=== PATIENT | male | born 1975 | race Caucasian/White ===

== ENCOUNTER 2020-03-24 15:24 | Outpatient (REF) | payer OTHER, SELFPAY ==
[2020-03-29 15:02] LABS: Testosterone, Free 72.4 pg/mL (35.0-155.0); Testosterone, Total 389 ng/dL (250-1100)
== END 2020-03-24 15:25 | disposition home or self-care (01) ==
LOC: HO.MANLDS 15:24
PROVIDERS: PCP Internal Medicine; Visit Provider Internal Medicine
DX: N52.9 Male erectile dysfunction, unspecified (principal)
CPT/HCPCS: 84402; 84403

== ENCOUNTER 2024-06-26 15:10 | Outpatient (REF) | payer BC, SELFPAY ==
--- OUTSIDE RECORDS SUMMARY | 2024-06-26 17:56 | XMS_ITS | Data Portability ---
Author Organization [facility] Home Service Address [address] [place] [address] Assessment Encounter Date Assessment Date Assessment LastModified by Organization Details LastModified Time 06/16/2021 06/16/2021 . Not available 05/2021 15:53:09 Plan of Treatment Reminders Order Date Submit Date Provider Last Modified By Organization Details Last Modified Time Details Appointments NEW PROBLEM 15 2024 02:30P M TARA BARROSO Not available Not available Not available Lab culture, body fluid - left bursitis, fluid 2024 025 [facility], [address] [place] [address], [id number], 06/26/2024 15:04:27 CMP, serum or plasma 2021 022 [facility], [address] [place] [address], [id number], 06/16/2021 16:05:12 CBC w/ auto diff 2021 022 [facility], [address] [place] [address], [id number], 06/16/2021 16:05:12 lipid panel, blood 2021 022 [facility], [address] [place] [address], [id number], 06/16/2021 16:05:12 PSA, serum or plasma 2021 022 [facility], [address] [place] [address], [id number], 06/16/2021 16:05:12 vitamin D, 25-hydrox y, total, serum 2021 022 [facility], [address] [place] [address], [id number], 06/16/2021 16:05:12 testoster one, free + total, w/ shbg, serum 2019 020 [facility], [address] [place] [address], [id number], 03/30/2020 11:15:20 Referral orthopedi c referral 2019 020 [email or web address] 10 Trudi Stallworth MD, [address] [place], [address], 06/19/2019 11:24:12 Procedures None recorded. Surgeries None recorded. Imaging XR, shoulder 2019 ELADIO Not available 06/19/2019 17:16:58 Medication Orders cephalexi n 500 mg capsule 2024 025 [facility]/Pharmacy #2024, [address] [place], [address], 06/26/2024 14:55:59 prednison e 10 mg tablet 2024 025 [facility]/Pharmacy #2024, [address] [place], [address], 06/26/2024 14:55:59 sildenafi l 50 mg tablet 2019 020 [facility]/Pharmacy #2024, [address] [place], [address], 03/23/2020 16:55:38 Patient TargetsNo targets recorded. Patient InstructionsNo instructions recorded. Reason for Referral Orthopedic Referral for Pain of right shoulder joint Referring Physician: Jody Carlos, Internal Medicine, Encounter Date: 06/17/2019 Results Created Date Observation Date Name Description Value Unit Range Abnormal Flag Note LastModifiedBy Organization Detail LastModifiedTime 06/19/19 20 06/19/2019 XR, shoul holland No observ ation record ed. [email or web address] [address], [address], 06/21/2019 12:14:27 06/22/19 22 06/21/2021 XR, shoul holland, 2 or more view No observ ation record ed. [facility] [address] [place] [address], [id number], 06/22/2021 12:19:16 07/09/19 22 07/07/2021 MRI, shoul holland, w/o contr ast No observ ation record ed. [email or web address] [facility] [address] [place] [address], [id number], 07/09/2021 11:26:06 Result Notes None recorded. 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 0 16:52:26 Bursitis of olecranon of left elbow 806876077659 101 Active 2024 TARA BARROSO [address] [place] [address], [phone], [facility] 5 14:54:06 Problem Notes None recorded. Procedures Surgical History Date Name Laterality Status Provider Name and Address Organization Details Recorded Time 025 Arthrocentesis Major Joint/Bursa completed TARA BARROSO [address] [place] [address], [phone], [facility] 06/26/2024 14:56:44 Imaging Results Imaging Date Name Status LastModified by Organiz ation Details LastModified Time 06/19/2019 [facility] [address], [address], 06/21/2019 12:14:27 06/21/2021 XR, shoulder, 2 or more view completed [facility] [address] [place] [address], [address], 06/22/2021 12:19:16 07/07/2021 MRI, shoulder, w/o contrast completed jvanasse [facility] [address] [place] [address], [id number], 07/09/2021 11:26:06 Procedure Notes None recorded. Medical Equipment None Reported. Allergies No known drug allergies Medications Name Sig Start Date Stop Date Status Note LastModified by Organization Details LastModified Time prednisone 10 mg tablet 40 mg x 2 days30 mg x 2 days 20 mg x 2 days10 mg x 2 days 2024 active Not Available Not Available Not Avai lable sildenafil 50 mg tablet TAKE 1 TABLET BY MOUTH NEEDED FOR 30 DAYS. active Not Available Not Available No t Available cephalexin 500 mg capsule Take 1 capsule every 6 hours by oral route for 7 days. 2024 active Not Available Not Available Not Avai lable sildenafil (pulmonary hypertension ) 20 mg tablet Take 3 tablets by mouth one hour prior to sex as needed. 06/16 completed Not Available Not Available Not Available Vitals Date Recorded Body height Body mass index (BMI) Body weight Heart rate Oxygen saturation Oxygen saturation in Arterial blood by Pulse oximetry Provider Name and Address Organization Details Last Updated DateTime 0 177.17 cm 32.8 kg/m2 613426. 19 g 104 /min 97 % 97 % Kallie Zepeda [facility] 0 14:21:45 Date Recorded Systolic blood pressure Diastolic blood pressure Provider Name and Address Organization Details Last Updated DateTime 06/17/2019 130 mm[Hg] 90 mm[Hg] July MARILIN Carlos [address] [place], [address], [facility] 06/17/2019 14:39:47 Date Recorded Body height Heart rate Oxygen saturation Oxygen saturation in Arterial blood by Pulse oximetry Systolic blood pressure Diastolic blood pressure Provider Name and Address Organization Details Last Updated DateTime 0 177.17 cm 98 /min 98 % 98 % 144 mm[Hg] 90 mm[Hg] Nick Jimenez DO [address] [place], [address], [facility] 0 16:18:26 Date Recorded Body height Body mass index (BMI) Body weight Heart rate Oxygen saturation Oxygen saturation in Arterial blood by Pulse oximetry Systolic blood pressure Diastolic blood pressure Provider Name and Address Organization Details Last Updated DateTime 2 177.17 cm 34 kg/m2 060309. 57 g 85 /min 98 % 98 % 128 mm[Hg] 78 mm[Hg] Nick Jimenez DO [address] [place], [address], [facility] 2 15:22:10 Social History Question Answer Notes LastModified by Organizat ion Details LastModified Time Tobacco Smoking Status Never Smoker Not Available [facility] 02/18[facility]2020 03:36:24 What Was The Date Of Your Most Recent Tobacco Screening? 06/16/2021 Information not available 06/16/2021 Do You Use Any Illicit Or Recreational Drugs? No Information not available 06/16/2021 Do You Or Have You Ever Used Any Other Forms Of Tobacco Or Nicotine? No Information not available 06/16/2021 Sex: Unknown Functional Status None recorded. Mental Status None recorded. Family History Nothing Reported. Medical History No medical history recorded. Immunizations Vaccine Type Date Status Note Provider Nam e and Address Organization Details Recorded Time COVID-19, mRNA, LNP-S, PF, 100 mcg/0.5mL dose or 50 mcg/0.25mL dose 03/08/2021 completed Mally Valencia [address] [place] [address], [phone], [facility] 06/16/2021 15:21:22 COVID-19, mRNA, LNP-S, PF, 100 mcg/0.5mL dose or 50 mcg/0.25mL dose 07/04/2020 completed Nyla dumont [facility] Internal [facility] 09/25/2020 11:31:56 COVID-19, mRNA, LNP-S, PF, 100 mcg/0.5mL dose or 50 mcg/0.25mL dose 08/10/2020 completed Nyla dumont [facility] Internal [facility] 09/25/2020 11:32:01 Past Encounters Encounter ID Performer Location Encounter Start Date Encounter Closed Date Diagnosis/Indication Diagnosis SNOMED-CT Code Diagnosis ICD10 Code Diagnosis Note [id number] July MARILIN Carlos [facility] [address] [facility] [address] [address] 06/17/2019 14:08:41 06/17/2019 14:48:33 Pain of right shoulder joint 4438051175 5421276 M25.511 declines pain meds recommend aleve 220 mg bid prn Labile hyp ertension due to being in a clinical environment 903384423 I15.8 BP elevated in office has been monitored at home in the past will recommend continue to monitor BP at home periodical ly as his in office BP will not be reliable [id number] Nick Jimenez [facility] [address] [facility] [address] [address] 03/23/2020 15:54:44 03/23/2020 16:56:18 Primary erectile dysfunction 043484727 N52.9 [id number] Nick Jimenez [facility] [address] [facility] [address] [address] 06/16/2021 15:14:51 06/16/2021 16:12:37 Active or passive immunization 837148989 Z23 hid Adult heal th examination 923169465 Z00.01 [id number] LORY RIDDLE [facility] [address] [facility] [address] [address] 06/26/2024 14:19:27 06/26/2024 15:48:18 Bursitis of olecranon of left elbow 1930544045 10982 M70.22 start on pred and keflexwill see if fluid can be sent out for culture Health Concerns Section Related Observation LastModified by Organization Detai ls LastModified Time None Recorded Concern Status LastModified by Organization Details LastModified Time None Recorded Advance Directives Directive None Recorded Payers Encounter Date Sequence Insurance Name Policy Number Policy Rodrigues Covered Member ID Rodrigues Member ID Guarantor Name 06/17/2019 1 [facility] Jun Delcidjaden [id number] Jun Nkechi 03/23/2020 1 [facility] Jun Nkechi [id number] Jun Delcidjaden 06/16/2021 1 [facility] [id number] Courtney Delcidjaden [id number] 18 Jun Delcidjaden 06/26/2024 1 [facility] [id number] Courtney Arboleda [id number] 18 Jun Nkechi Notes Date Note Type Note Provider Name a nd Address Organization Details Recorded Time 0 text/html c/o right shoulder pain and something is popping out x a couple weeks, but it occurred before that intermittently but not particularly bothersome no arm weakness feels discomfort or that something might pop out when his arm is stretched out it 30 years ago, but it hasn't been bothersome since until this started. at that time he was playing football and fell back and his arm hyperextended. not sure if he even went to the doctor at that time. 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 06/17/2019 14:45:14 0 text/html here for a prob with ed relates has been present off on for a couple years last 6 mo became worse Nick Jimenez DO [address] [facility], [place], [address], [facility] 03/23/2020 16:56:17 2 text/html Annual WellnessReported bypatient.Diet and Nutrition:healthy diet Fracture Risk:no history of fractures; no recent explained fracture; no sudden unexplained fractures; no previous musculoskeletal injuries Physical Activity:exercises on a regular basis; recent increase in physical activity; good physical condition Additional Lifestyle Factors:no tobacco use; no alcohol intake; stopped drinking alcohol Depression Risk:never feels sad, empty, or tearful; no loss of interest in activities; no significant changes in weight; no sleep disturbances or insomnia; no agitation; no loss of energy; no feelings of worthlessness or guilt; no thoughts of suicide; no history of depression; no history of mood disorders Hearing:no loss of hearing Vision:no vision problems doing well no major issuesnote he had two hip replacements at 41 yrs of age Nick Jimenez DO [address] [place], [address], [facility] 06/16/2021 15:59:18 5 text/html c/o bursitis, left elbow unknown cause, no trauma no injury no signs suggestive of gout, minimal pain, no redness outside of the bursa, no warmth with palpation patient was prepped for aspiration proceduregiven 1cc of lidocaine 1% w/o epi and 9 mL of fluid was drained from the bursa with 22 g syringe fluid was all removed, area is now back to normal anatomypt tolerated procedure well given course of pred and abxwill see if fluid can be sent out for culture TARA BARROSO [address] [place], [address], [facility] 06/26/2024 15:00:54
--- OUTSIDE RECORDS SUMMARY | 2024-06-26 17:56 | XMS_ITS | Continuity of Care Document ---
Author Organization [facility], [facility] Address [address] [facility] [place] [address] [place] [address] Assessment No assessment recorded. Plan of Treatment Reminders Order Date Submit Date Provider Last Modified By Organization Details Last Modified Time Details Appointments NEW PROBLEM 15 2024 02:30P M TARA BARROSO Not available Not available Not available Lab culture, body fluid - left bursitis, fluid 2024 025 [facility], [address] [place] [address], [address], 06/26/2024 15:04:27 Referral None recorded. Procedures None recorded. Surgeries None recorded. Imaging None recorded. Medication Orders cephalexi n 500 mg capsule 2024 025 [facility]/Pharmacy #2024, [address] [place], [address], 06/26/2024 14:55:59 prednison e 10 mg tablet 2024 025 [facility]/Pharmacy #2024, [address] [place], [address], 06/26/2024 14:55:59 Patient TargetsNo targets recorded. Patient InstructionsNo instructions recorded. Reason for Referral None Reported. 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 0 16:52:26 Bursitis of olecranon of left elbow 005285615942 101 Active 2024 TARA BARROSO [address] [place], [address], [facility] 14:54:06 Problem Notes None recorded. Procedures Surgical History Date Name Laterality Status Provider Name and Address Organization Details Recorded Time 025 Arthrocentesis Major Joint/Bursa completed TARA BARROSO [address] [place], [address], [facility] 06/26/2024 14:56:44 Imaging Results None recorded. Procedure Notes None recorded. Medical Equipment None [...] Not Available Not Available Not Available Vitals None Recorded Social History Question Answer Notes LastModified by Organizat ion Details LastModified Time Tobacco Smoking Status Never Smoker Not Available [facility] 02/18/2020 03:36:24 What Was The Date Of [...] 50 mcg/0.25mL dose 03/08/2021 completed Mally Valencia [address] [facility], [place], [address], [facility] Internal [facility] 06/16/2021 15:21:22 COVID-19, mRNA, LNP-S, PF, 100 mcg/0.5mL dose or 50 mcg/0.25mL dose 07/04/2020 completed Nyla dumont [facility] 09/25/2020 11:31:56 COVID-19, mRNA, LNP-S, PF, 100 mcg/0.5mL dose or 50 mcg/0.25mL dose 08/10/2020 completed Nyla dumont [facility] 09/25/2020 11:32:01 Past Encounters Encounter ID Performer Location Encounter Start Date Encounter Closed Date Diagnosis/Indication Diagnosis SNOMED-CT Code Diagnosis ICD10 Code Diagnosis Note [id number] ATRA BARROSO [facility] [address] [facility] [address] 06/26/2024 14:19:27 06/26/2024 15:48:18 Bursitis of olecranon of left elbow 2583858695 61638 M70.22 start on pred and keflexwill see if fluid can be sent out for culture Health Concerns Section Related Observation LastModified by Organization Detai ls LastModified Time None Recorded Concern Status LastModified by Organization Details LastModified Time None Recorded Payers Encounter Date Sequence Insurance Name Policy Number Policy Rodrigues Covered Member ID Rodrigues Member ID Guarantor Name 06/26/2024 1 [facility] [id number] Courtney Arboleda [id number] 18 Jun Arboleda Notes Date Note Type Note Provider Name a nd Address Organization Details Recorded Time 06/26/2024 text/html c/o bursitis, le ft elbow unknown cause, no trauma no injury [...] sent out for culture TARA BARROSO [address] [facility], [place], [address], [facility] 06/26/2024 15:00:54
== END 2024-06-26 15:11 | disposition home or self-care (01) ==
LOC: HO.MANLDS 15:10
PROVIDERS: Visit Provider Physician Assistant
DX: M70.22 Olecranon bursitis, left elbow (principal)
CPT/HCPCS: 87070; 87073; 87205